=== PATIENT | male | born 1960 | race Two or more races ===

== ENCOUNTER 2018-03-18 07:39 | Outpatient (CLI) | payer OTHER ==
[~2018-03-18 07:39] MED LIST: AMOX1TAB12 PO; CATAFLAM50 MG PO; DECADRON P4 MG/ML-1M IH; KETO10TA2 PO; ORPH100T PO; PEPCID40 MG PO; PHENERGAN25 MG PO; TORADOL60 MG IM
== END 2018-03-18 07:42 | disposition home or self-care (01) ==
LOC: LAB 07:39
DX: M90.8 Osteopathy in diseases classified elsewhere (principal); R68.89 Other general symptoms and signs; I11.9 Hypertensive heart disease without heart failure; E78.00 Pure hypercholesterolemia, unspecified; E03.8 Other specified hypothyroidism; E11.9 Type 2 diabetes mellitus without complications; I12.9 Hypertensive chronic kidney disease with stage 1 through stage 4 chronic kidney disease, or unspecified chronic kidney disease; R31.29 Other microscopic hematuria

== ENCOUNTER 2018-03-18 08:17 | Outpatient (CLI) | payer OTHER | END 2018-03-18 08:31 | disposition home or self-care (01) | LOC: SONOGRAMA 08:17 → MAMO-SONO 09:15 | DX: R10.84 Generalized abdominal pain (principal) ==

== ENCOUNTER → 2018-03-20 15:19 | Outpatient (CLI) | payer OTHER | END | disposition home or self-care (01) | LOC: LAB 15:19 | DX: I11.9 Hypertensive heart disease without heart failure (principal); R68.89 Other general symptoms and signs; E78.2 Mixed hyperlipidemia; R31.9 Hematuria, unspecified; E03.8 Other specified hypothyroidism; E11.9 Type 2 diabetes mellitus without complications ==

== ENCOUNTER 2021-02-24 10:01 | Outpatient (CLI) | payer OTHER | END 2021-02-24 10:44 | disposition home or self-care (01) | LOC: SONOGRAMA 10:01 | PROVIDERS: ATTEND Urology | DX: N40.1 Benign prostatic hyperplasia with lower urinary tract symptoms (principal); R31.29 Other microscopic hematuria ==